=== PATIENT | female | born 1995 | race American Indian/Alaskan Native ===

== ENCOUNTER 2018-09-28 09:39 | Emergency (ER) | payer BC ==
[2018-09-28 09:46] VITALS: BP 120/80
--- NOTE | 2018-09-28 10:12 | Emergency Department Report ---
ED Rash HPI - HPI Chief Complaint: Urogenital-Female Stated Complaint: INFECTED BARTHOLIN CYST VAGINAL Time Seen by Provider: 09/28/18 10:04 Duration: 3 Days Location: Other Suspected Cause: Unknown Rash Symptoms: No Itching, No Facial Swelling, No Tongue/Oral Swelling, No Breathing Difficulties, No Choking Sensation, No Wheezing/Dyspnea, No Peeling, No Blistering, No Fever, No Lightheaded, No Malaise, No Myalgias Severity: mild Other History: Patient is a 23-year-old female who comes to the ER complaining of a vaginal bump since Friday. Her last menstrual cycle was 225. She has no vaginal bleeding or discharge. She is not concerned for STI's. The patient states that the area on her left labia majora has become sore and red. She states that she thinks it started as an ingrown hair. Patient is ambulatory. She denies any dysuria. She has no fever on admission. PMH. ASTHMA. PSH. NONE ED Review of Systems ROS: Stated complaint: INFECTED BARTHOLIN CYST VAGINAL Other details as noted in HPI Comment: All other systems reviewed and negative Constitutional: denies: see HPI, fever Eyes: denies: eye pain ENT: denies: throat pain Respiratory: denies: orthopnea Cardiovascular: denies: palpitations Gastrointestinal: denies: nausea Genitourinary: denies: urgency Musculoskeletal: denies: back pain Skin: as per HPI, lesions Neurological: denies: headache Psychiatric: denies: depression Hematological/Lymphatic: denies: easy bleeding ED Past Medical Hx - Past Medical History Previous Medical History?: Yes Hx Asthma: Yes - Surgical History Past Surgical History?: Yes Additional Surgical History: tonsilectomy/adnoidectomy - Family History Family history: no significant - Social History Smoking Status: Current Every Day Smoker Substance Use Type: None - Medications Home Medications: Home Medications Medication Instructions Recorded Confirmed Last Taken Type cephALEXin [Keflex] 500 mg PO Q12HR #14 cap 09/28/18 Unknown Rx Rash Exam - Exam General: Vital signs noted. No distress. Alert and acting appropriately. NO ABSCESS NO ZORA. CYST POST LEFT LAB MAJORA WITH AREA OF RED FOLLICULITIS NO DRAINAGE SOFT TO PALPATION NO DISCHARGE PT REPORTS SHAVING AND INGROWN HAIR LIKELY TRIGGERED THIS. HEENT: No Periorbital Edema, No Conjuctival Injection, No Chemosis, No Perioral Edema, No Tongue Edema, No Uvular Edema, No Compromised Airway, No Drooling Lungs: Yes Good Air Exchange, No Wheezes, No Ronchi, No Stridor, No Cough, No Labored Respirations, No Retractions, No Use of Accessory Muscles, No Other Abnormal Lung Sounds Heart: Yes Regular, No Murmur Skin: Yes Tenderness, Yes Erythema, No Urticarial Rash, No Maculopapular Rash, No Morbilliform rash, No Bulla(e), No Excoriations, No Weeping, No Edema, No Encrustations Other: Positive: Abdomen Normal, Neurologic Normal, Musculoskeletal Normal ED Course Vital Signs 09/28/18 09:45 Temperature 97.6 F Pulse Rate 90 Respiratory 16 Rate Blood Pressure 120/80 O2 Sat by Pulse 100 Oximetry ED Medical Decision Making - Medical Decision Making SIMPLE FOLLICULITIS WILL TREAT OUT PT WITH PCP FOLLOW UP Vital Signs 09/28/18 09:45 Temperature 97.6 F Pulse Rate 90 Respiratory 16 Rate Blood Pressure 120/80 O2 Sat by Pulse 100 Oximetry Critical care attestation.: If time is entered above; I have spent that time in minutes in the direct care of this critically ill patient, excluding procedure time. ED Disposition Clinical Impression: Folliculitis Disposition: - TO HOME OR SELFCARE Is pt being admited?: No Does the pt Need Aspirin: No Condition: Stable Instructions: Folliculitis (ED) Additional Instructions: MOTRIN OR TYLENOL FOR PAIN HYDRATE WELL WITH WATER WEAR COTTON UNDER GARMENTS MED ORDERED TODAY FOLLOW UP WITH PCP REFERRAL BELOW. SOAK IN WARM WATER WITH EPSOM SALTS THREE TIMES PER DAY FOR 20 MIN EACH TIME. DIET AND ACTIVITY TOLERATED Prescriptions: cephALEXin [Keflex] 500 mg PO Q12HR #14 cap Referrals: [facility] [Outside] - 3-5 Days Time of Disposition: 10:11
== END 2018-09-28 10:30 | disposition home or self-care (01) ==
LOC: ED 09:39
DX: L73.9 Follicular disorder, unspecified (principal); J45.909 Unspecified asthma, uncomplicated; F17.200 Nicotine dependence, unspecified, uncomplicated; Z90.89 Acquired absence of other organs
CPT/HCPCS: 99282

== ENCOUNTER 2018-09-29 09:22 | Emergency (ER) | payer BC ==
[2018-09-29 09:31] VITALS: BP 114/72
--- NOTE | 2018-09-29 11:00 | Emergency Department Report ---
ED Rash HPI - HPI Chief Complaint: Allergic Reaction Stated Complaint: BODY RED/ITCHY Time Seen by Provider: 09/29/18 10:59 Rash Symptoms: Yes Itching, No Facial Swelling, No Tongue/Oral Swelling, No Breathing Difficulties, No Choking Sensation, No Wheezing/Dyspnea, No Peeling, No Blistering, No Fever, No Lightheaded, No Malaise, No Myalgias Severity: moderate Other History: 23-year-old female comes in reporting that she was here yesterday and was treated for folliculitis and was given Keflex. Patient states she took the medication in workup with hives. Patient states she had itchiness and redness from her chest down to her mid thigh. Patient denies any trouble breathing does admit to some throat irritation but denies any throat swelling. Patient has not taken any medications. ED Review of Systems ROS: Stated complaint: BODY RED/ITCHY Other details as noted in HPI Comment: All other systems reviewed and negative Skin: rash ED Past Medical Hx - Past Medical History Hx Asthma: Yes - Surgical History Additional Surgical History: tonsilectomy/adnoidectomy - Social History Smoking Status: Current Every Day Smoker Substance Use Type: None - Medications Home Medications: Home Medications Medication Instructions Recorded Confirmed Last Taken Type cephALEXin [Keflex] 500 mg PO Q12HR #14 cap 09/28/18 Unknown Rx Famotidine [Pepcid] 20 mg PO BID #10 tablet 09/29/18 Unknown Rx Prednisone [predniSONE 5 mg (6-Day 5 mg PO .TAPER #1 tab.ds.pk 09/29/18 Unknown Rx Pack, 21 Tabs)] Sulfamethoxazole/Trimethoprim 1 each PO BID #20 tablet 09/29/18 Unknown Rx [Bactrim DS TAB] diphenhydrAMINE [Benadryl CAP] 25 mg PO Q6HR PRN #15 capsule 09/29/18 Unknown Rx Rash Exam - Exam General: Vital signs noted. No distress. Alert and acting appropriately. HEENT: No Periorbital Edema, No Conjuctival Injection, No Chemosis, No Perioral Edema, No Tongue Edema, No Uvular Edema, No Compromised Airway, No Drooling Lungs: Yes Good Air Exchange (Normal Breath Sounds), No Wheezes, No Ronchi, No Stridor, No Cough, No Labored Respirations, No Retractions, No Use of Accessory Muscles, No Other Abnormal Lung Sounds Heart: Yes Regular, No Murmur Skin: Yes Erythema ED Course Vital Signs 09/29/18 09:29 Temperature 98.4 F Pulse Rate 94 H Respiratory 18 Rate Blood Pressure 114/72 [Left] O2 Sat by Pulse 98 Oximetry ED Medical Decision Making - Medical Decision Making Patient has been evaluated by this provider in fast track. Patient as been ordered Pepcid 20 mg by mouth, Benadryl 25 mg by mouth and prednisone 40 mg by mouth. Discussed the patient to discontinue taking Keflex and I will place her on Bactrim double strength 1 tab by mouth twice a day for 10 days patient's continue taking [id number] Benadryl I will prescribe her a Medrol Dosepak she is to follow-up with the primary care provider to the reevaluated for her folliculitis. Critical care attestation.: If time is entered above; I have spent that time in minutes in the direct care of this critically ill patient, excluding procedure time. ED Disposition Clinical Impression: Folliculitis Allergic reaction caused by a drug Qualifiers: Encounter type: initial encounter Qualified Code(s): T78.40XA - Allergy, unspecified, initial encounter Disposition: DC-01 TO HOME OR SELFCARE Is pt being admited?: No Does the pt Need Aspirin: No Condition: Stable Instructions: Antibiotic Medication Allergy (ED) Additional Instructions: Medication as prescribed. Discontinue taking Keflex start Bactrim double stren gth as prescribed. Prescriptions: Sulfamethoxazole/Trimethoprim [Bactrim DS TAB] 1 each PO BID #20 tablet diphenhydrAMINE [Benadryl CAP] 25 mg PO Q6HR PRN #15 capsule PRN Reason: Allergic Reaction Famotidine [Pepcid] 20 mg PO BID #10 tablet Prednisone [predniSONE 5 mg (6-Day Pack, 21 Tabs)] 5 mg PO .TAPER #1 tab.ds.pk Referrals: ANGELINA WISDOM MD [Primary Care Provider] - 3-5 Days Forms: Work/School Release Form(ED)
[2018-09-29] MEDS ORDERED: BENADRYL PO ONE (11:08)
[2018-09-29] MEDS ORDERED: PEPCID PO ONE (11:08)
[2018-09-29] MEDS ORDERED: DELTASONE PO ONE (11:08)
== END 2018-09-29 11:53 | disposition home or self-care (01) ==
LOC: ED 09:22
DX: L73.9 Follicular disorder, unspecified (principal); T36.1X5A Adverse effect of cephalosporins and other beta-lactam antibiotics, initial encounter; J45.909 Unspecified asthma, uncomplicated; F17.200 Nicotine dependence, unspecified, uncomplicated; Z90.89 Acquired absence of other organs; Y92.89 Other specified places as the place of occurrence of the external cause
CPT/HCPCS: 99282; J7512